=== PATIENT | female | born 1990 | race Caucasian/White ===

== ENCOUNTER 2019-01-23 09:40 | Inpatient (IN) | payer BC ==
[2019-01-23] MEDS ORDERED: Lidocaine 1% (PF) 30 ML VIAL ONE (10:01)
[2019-01-23] MEDS ORDERED: Bicitra 30 ML UDCUP ONE (10:01)
[2019-01-23 10:20] VITALS: BMI 23.0
[2019-01-23] MEDS ORDERED: Promethazine HCl 25 MG/ML VIAL IM PRN ×3 (10:31→16:51)
[2019-01-23] MEDS ORDERED: Ondansetron PF 4 MG/2 ML Vial IVP PRN ×3 (10:31→16:51)
[2019-01-23] MEDS ORDERED: hydrALAZINE 20 MG/ML VIAL SLOW IVP PRN ×2 (10:31→16:51)
[2019-01-23] MEDS ORDERED: Lactated Ringer's 1,000 ML IV SCH (10:45)
[2019-01-23] MEDS ORDERED: CEFAZOLIN 2 GM, Admixture Fee 1 EACH in Sodium Chloride 0.9% 100 ML IVPB SCH (10:45)
[2019-01-23] MEDS ORDERED: Bicitra 30 ML UDCUP PO SCH (10:45)
[2019-01-23 11:29] LABS: Hemoglobin 13.4 g/dL (12.0-16.0); Mean Corpuscular HGB CONC 34.1 g/dL (32.0-36.0); Mean Corpuscular Hemoglobin 29.7 pg (27.0-31.0); Mean Corpuscular Volume 87.1 fL (78.0-98.0); Mean Platelet Volume 11.1 fL (7.4-10.4); Platelet Count 175 thou/uL (130-400); RBC Distribution Width 12.2 % (11.5-14.5); Red Blood Cell (RBC) Count 4.52 mill/uL (4.20-5.40); White Blood Cell (WBC) Count 6.1 thou/uL (4.8-10.8)
[2019-01-23 12:07] LABS: Syphilis Antibody Nonreactive (Nonreactive); Syphilis Antibody Index 0.04 S/CO (<1.00 Non-Reactive)
[2019-01-23 12:08] LABS: Hep B Surf Ag Non-Reactive S/CO (NonReactive)
--- NOTE | 2019-01-23 12:21 | PDOC.LDHP ---
Labor and Delivery H&P HPI: 28 y/o at 38 1/7 weeks, and EDC of 02/05/19, with late transfer of care to my practice, seen for the first time on 01/21/19. Patient was followed in [place], [place] for complications of SGA/IUGR as well as concern for a very small pelvis/suspected CPD. Patient had an ultrasound showing EFW at only 2288g (<10tile) on 01/21/19. BPP done and was 6/ in clinic (-2 for breathing). HERBERT at 8.99cm (WNL). Patient was counselled on early term delivery for IUGR and less than perfect BPP. Induction of labor was discussed carefully and offered, as well as primary discussed given suspected small maternal pelvis. Furthermore, given her unfavorable cervical exam, the patient has decided to undergo primary C- section rather than induction for suspected CPD. Current gestational age (weeks): 38 Due date: 02/05/19 Grav: 1 Para: 0 Current complications: IUGR Abnormal US findings: Yes (11/24 BPP, IUGR) Current medications: pre- vitamins Previous surgical history: none Allergies/Adverse Reactions: Allergies Allergy/AdvReac Type Severity Reaction Status Date / Time No Known Allergies Allergy Verified 01/23/19 10:44 Social history: none - Physical Exam Vital signs reviewed and normal: yes General: NAD, resting Heart: RRR Lungs: nonlabored breathing Abdomen: NTTP Extremeties: no edema FHT: category 1 - Vaginal Exam cm dilated: 0 Effacement: 0% Station: -3 - Assessment L&D Assessment: term patient in labor - Plan Plan: admit to L&D, to OR for section
[2019-01-23] MEDS ORDERED: Oxytocin 10 UNITS/ML VIAL ONE ×3 (12:40→13:18)
[2019-01-23] MEDS ORDERED: MORPHINE 5 MG/10 ML PF VIAL ONE (12:40)
[2019-01-23] MEDS ORDERED: PROPOFOL 0 ML ONE (13:18)
[2019-01-23] MEDS ORDERED: HYDROmorphone 2 MG/ML VIAL SLOW IVP PRN (14:07)
[2019-01-23] MEDS ORDERED: diphenhydrAMINE 50 MG/ML VIAL IVP PRN (14:07)
[2019-01-23] MEDS ORDERED: Naloxone HCl 0.4 mg/ml Vial IV PRN (14:07)
[2019-01-23] MEDS ORDERED: Promethazine HCl 25 MG SUPP PR PRN (14:07)
[2019-01-23] MEDS ORDERED: L&D-Morphine 4 MG/ML VIAL SLOW IVP PRN (14:07)
[2019-01-23] MEDS ORDERED: Meperidine HCl/PF 25 MG/ML VIAL SLOW IVP PRN (14:07)
[2019-01-23] MEDS ORDERED: Naloxone HCl 0.4 mg/ml Vial IVP PRN ×2 (14:07)
[2019-01-23] MEDS ORDERED: Ondansetron HCl/PF 4 MG/2 ML Vial IVP PRN (14:07)
[2019-01-23] MEDS ORDERED: Ketorolac Tromethamine 30 MG/ML VIAL IVP SCH (14:15)
[2019-01-23] MEDS ORDERED: Communication Order-Pharmacy FS SCH (14:15)
[2019-01-23] MEDS ORDERED: Ondansetron PF 4 MG/2 ML Vial ONE (14:33)
[2019-01-23] MEDS ORDERED: NS / Oxytocin 40 units/1000ml 1,000 ML IV SCH (16:51)
[2019-01-23] MEDS ORDERED: Methylergonovine 0.2 MG/ML VIAL IM PRN (16:51)
[2019-01-23] MEDS ORDERED: diphenhydrAMINE 25 MG CAP PO PRN (16:51)
[2019-01-23] MEDS ORDERED: Misoprostol 200 MCG TAB PR PRN (16:51)
[2019-01-23] MEDS ORDERED: Simethicone Chewable 80 MG TAB PO PRN (16:51)
[2019-01-23] MEDS ORDERED: Lanolin Ointment 7 GM TUBE TOP PRN (16:51)
[2019-01-23] MEDS: Ketorolac Tromethamine 30 MG/ML VIAL IVP PRN (17:05)
[2019-01-24] MEDS: Ketorolac Tromethamine 30 MG/ML VIAL IVP PRN ×2 (01:47→10:21)
[2019-01-24] MEDS ORDERED: HYDROcodone/Acetaminophen 5/325 mg Tablet PO PRN (02:00)
[2019-01-24] MEDS: Docusate Calcium (SURFAK) 240 MG CAP PO SCH ×3 (04:25→21:29)
[2019-01-24 05:44] LABS: Hemoglobin 12.1 g/dL (12.0-16.0); Mean Corpuscular HGB CONC 33.5 g/dL (32.0-36.0); Mean Corpuscular Hemoglobin 29.6 pg (27.0-31.0); Mean Corpuscular Volume 88.3 fL (78.0-98.0); Platelet Count 151 thou/uL (130-400); RBC Distribution Width 12.1 % (11.5-14.5); White Blood Cell (WBC) Count 10.9 thou/uL (4.8-10.8)
[2019-01-24] MEDS ORDERED: Adacel (T-DAP) 0.5 ML SYRINGE IM ONE (09:00)
[2019-01-24] MEDS ORDERED: Varicella virus, LIVE 0.5 ML VIAL SC ONE (09:00)
[2019-01-24] MEDS ORDERED: Measles/Mumps/Rubella 10 MCG/0.5 ML VIAL SC ONE (09:00)
[2019-01-24] MEDS: Prenatal Vitamin 1 TAB PO SCH (10:07)
[2019-01-24] MEDS ORDERED: Sodium Chloride 0.9% 10 ML ONE (10:15)
[2019-01-24] MEDS: Ibuprofen 800 MG TAB PO SCH ×2 (17:17→21:29)
--- NOTE | 2019-01-24 18:13 | PDOC.PP ---
Post Progress Note Post Day #: 1 PO intake tolerated: yes Flatus: yes Ambulation: yes Vital Signs (12 hours) Temp Pulse Resp BP Pulse Ox 01/24/19 11:36 98.3 F 72 20 120/76 01/24/19 08:03 97.9 F 59 L 20 102/68 98 01/24/19 08:00 98 Weight Weight 130 lb - Physical Examination General: NAD Cardiovascular: no m/r/g, RRR Respiratory: clear to auscultation bilaterally, non-labored breathing Abdominal: + bowel sounds, lochia, no distention, appropriately TTP Extremities: negative homans (B) Skin: CS incision dry & intact, no rash Neurological: no gross focal deficits Psychiatric: A&Ox3, normal affect Result Diagrams: 01/24/19 05:30 Additional Labs: Post Labs Blood Type B POSITIVE 01/23/19 11:44 Hep Bs Antigen Non-Reactive S/CO (NonReactive) 01/23/19 10:38
--- NOTE | 2019-01-25 03:36 | PDOC.PP ---
Post Progress Note Post Day #: 2 PO intake tolerated: yes Flatus: yes Ambulation: yes Vital Signs (12 hours) Temp Pulse Resp BP Pulse Ox 01/25/19 00:00 98.3 F 80 18 111/76 01/24/19 20:45 98.2 F 88 20 102/62 98 01/24/19 17:00 98.5 F 81 20 117/69 Weight Weight 130 lb - Physical Examination General: NAD Cardiovascular: no m/r/g, RRR Respiratory: clear to auscultation bilaterally, non-labored breathing Abdominal: + bowel sounds, lochia, no distention Extremities: negative homans (B) Skin: CS incision dry & intact, no rash Neurological: no gross focal deficits Psychiatric: A&Ox3, normal affect Result Diagrams: 01/24/19 05:30 Additional Labs: Post Labs Blood Type B POSITIVE 01/23/19 11:44 Hep Bs Antigen Non-Reactive S/CO (NonReactive) 01/23/19 10:38
[2019-01-25] MEDS: Ibuprofen 800 MG TAB PO SCH ×5 (06:08→20:19)
[2019-01-25] MEDS: Docusate Calcium (SURFAK) 240 MG CAP PO SCH ×2 (08:48→20:19)
[2019-01-25] MEDS: Prenatal Vitamin 1 TAB PO SCH (08:48)
[2019-01-25] MEDS: HYDROcodone/Acetaminophen 5/325 mg Tablet PO PRN ×3 (08:58→18:06)
--- NOTE | 2019-01-25 09:44 | OP ---
DATE OF PROCEDURE: 01/23/2019 [facility]ICE[facility] [place] [facility] PREOPERATIVE DIAGNOSES: 1. Intrauterine at 38 weeks and 1 day with intrauterine growth restriction. 2. Cephalopelvic disproportion. POSTOPERATIVE DIAGNOSES: 1. Intrauterine at 38 weeks and 1 day with intrauterine growth restriction. 2. Cephalopelvic disproportion. 3. Uterine fibroids. PROCEDURES PERFORMED: 1. Primary low-transverse section. 2. Myomectomy. FINDINGS: Viable male weighing 2293 g or 5 pounds 1 ounce with Apgars of 8 and 9. QUANTITATIVE BLOOD LOSS: 260 mL. COMPLICATIONS: None. DETAILS OF THE PROCEDURE: The patient was consented and taken back to the operating room where spinal anesthesia was found to be adequate. She was then prepped and draped in the normal sterile fashion. A timeout was performed by the entire operative team. The incision was then marked with a marking pen tested using sharp pickups. An incision was then made with a scalpel. The incision was carried through the adipose tissue down to the underlying rectus fascia using both sharp dissection as well as cautery. Once the fascia was identified, it was incised in the midline and then the fascial incision was carried through in both lateral directions using sharp as well as cautery dissection techniques. Next, the superior aspect of the rectus fascia was grasped with 2 Alvino clamps, which was tented up and the rectus muscles were dissected off using blunt dissection as well as cautery dissection. Similarly, the inferior aspect of the fascial incision was grasped with 2 Alvino clamps, tented up and the rectus muscles were dissected off bluntly as well as sharply. Next, the rectus muscles were in the midline and the peritoneum identified. The peritoneum was then carefully grasped with 2 hemostats and entered sharply. The peritoneal incision was extended superiorly and inferiorly and bladder blade was placed in the lower abdomen. At this point, the uterus was identified and the bladder flap was then developed using pickups with teeth as well as Metzenbaum scissors in both lateral directions. The bladder flap was then dissected downwards using the surfacing machine operator's finger as well as Metzenbaum scissors. The bladder blade was replaced. The lower uterine segment was then identified and entered sharply using a clean scalpel. The uterine incision was then dissected downwards until thin layer of muscle remained and this was entered bluntly using a hemostat to avoid any injury to the baby. The uterine incision was then stretched using two fingers in both lateral directions. An amniotomy was performed artificially using a hemostat and the baby was delivered using fundal pressure in a gentle fashion. Once out, the baby's mouth and nose were bulb suctioned, cord clamped and cut, and the baby was handed to waiting attendants. Next, the uterus was exteriorized, cleared of all clots and debris and the uterine incision was repaired with #1 Monocryl in a running locking fashion. A 2nd suture of the same type was used to obtain complete hemostasis at the uterine incision. The bladder flap was reapproximated using 3-0 Monocryl. Next, patient's left and right adnexa were inspected and appeared to be within normal limits. The posterior cul-de-sac was blotted dry and hemostasis assured. One more look at the uterine incision demonstrated hemostasis. Next, the uterus was replaced back within the abdomen. The peritoneum was reapproximated using 2-0 Monocryl without difficulty. The rectus muscles were then allowed to come back together and 0 chromic was used to aid in reapproximation of the muscle as necessary. The rectus fascia was then reapproximated in a running fashion using 0 Vicryl suture. The adipose tissue was then examined and appeared to be well approximated without any obvious separations. Finally, the skin was reapproximated with 3-0 Monocryl on a James needle without difficulty and Dermabond adhesive was applied to the skin. Once the glue was dry, the drapes were removed and the patient was transferred to an ambulatory bed where she was taken to recovery awake and in stable condition. Sponge, lap, and needle counts were correct x3. ADDENDUM: On closure of uterus, this area was closed using 2-0 chromic in a running locking both for therapeutic and for diagnostic reasons Job ID: [id number]
[2019-01-26] MEDS: Ibuprofen 800 MG TAB PO SCH ×2 (04:36→13:58)
[2019-01-26] MEDS: Prenatal Vitamin 1 TAB PO SCH (08:44)
[2019-01-26] MEDS: HYDROcodone/Acetaminophen 5/325 mg Tablet PO PRN ×3 (08:45→16:49)
[2019-01-26] MEDS: Docusate Calcium (SURFAK) 240 MG CAP PO SCH (08:45)
[2019-01-26 10:07] VITALS: BP 123/81; TEMP 98.5
--- NOTE | 2019-01-26 13:22 | PDOC.PP ---
Post Progress Note Post Day #: 3 PO intake tolerated: yes Flatus: yes Ambulation: yes Vital Signs (12 hours) Temp Pulse Resp BP Pulse Ox 01/26/19 08:35 98.5 F 91 20 123/81 99 Weight Weight 130 lb - Physical Examination General: NAD Cardiovascular: no m/r/g, RRR Respiratory: clear to auscultation bilaterally, non-labored breathing Abdominal: + bowel sounds, lochia, appropriately TTP Extremities: negative homans (B) Skin: CS incision dry & intact Neurological: no gross focal deficits Psychiatric: A&Ox3, normal affect Result Diagrams: 01/24/19 05:30 Additional Labs: Post Labs Blood Type B POSITIVE 01/23/19 11:44 Hep Bs Antigen Non-Reactive S/CO (NonReactive) 01/23/19 10:38 - Assessment/Plan doing well pod3 cs dc
== END 2019-01-26 17:40 | disposition home or self-care (01) | DRG 788 ==
LOC: L&D 09:40 → 3SW 16:24
PROVIDERS: ADMIT Obstetrics & Gynecology; ATTEND Obstetrics & Gynecology
PROC: 10D00Z1 Extraction of Products of Conception, Low, Open Approach (ICD-10-PCS; principal; 2019-01-24)
PROC: 0UB90ZZ Excision of Uterus, Open Approach (ICD-10-PCS; 2019-01-24)
DX: O36.5930 Maternal care for other known or suspected poor fetal growth, third trimester, not applicable or unspecified (principal); O33.9 Maternal care for disproportion, unspecified; O34.13 Maternal care for benign tumor of corpus uteri, third trimester; D25.9 Leiomyoma of uterus, unspecified; Z3A.38 38 weeks gestation of pregnancy; Z37.0 Single live birth
CPT/HCPCS: 36415; 51702; 85027; 86780; 86850; 86900; 86901; 87340; 88305; 88307; 90715; J0690; J1885; J2001; J2274; J2405; J2590; J2704; J3490